=== PATIENT | male | born 1975 | race Caucasian/White ===

== ENCOUNTER 2018-07-27 19:05 | Emergency (ER) | payer OTHER ==
[~2018-07-27] VITALS: Ht 162.6 cm; Wt 81.6 kg
[2018-07-27 19:24] VITALS: Ht 162.6 cm; Wt 81.6 kg
[2018-07-27 20:47] LABS: CALCIUM 9.3 mg/dL (8.5-10.1); CARBON DIOXIDE 28.8 mmol/L (21-32); CHLORIDE SERUM 99 mmol/L (98-107); CREATININE SERUM 0.8 mg/dL (0.7-1.3); GFR1 > 60 mL/min; GLUCOSE SERUM 406 mg/dL (74-106); POTASSIUM SERUM 4.2 mmol/L (3.5-5.1); SODIUM SERUM 135 mmol/L (136-145)
[2018-07-27 23:10] VITALS: BP 126/75
== END 2018-07-27 23:10 | disposition home or self-care (01) ==
LOC: ED 19:05
PROVIDERS: Emergency Medicine
DX: E11.65 Type 2 diabetes mellitus with hyperglycemia (principal); I10 Essential (primary) hypertension
CPT/HCPCS: 82962; J7030

== ENCOUNTER → 2018-07-27 | Emergency (ER) | payer OTHER | LOC: CANPREER → ED 19:05 | DX: Z02.89 Encounter for other administrative examinations (principal) ==